=== PATIENT | female | born 1930 | race Caucasian/White ===

== ENCOUNTER 2016-11-13 01:04 | Day surgery (SDC) | payer MEDICARE, OTHER ==
[~2016-11-13] VITALS: Ht 142.2 cm; Wt 55.5 kg
[2016-11-13] VITALS (24 sets, daily range): BP systolic 89–121; BP diastolic 43–94; PULSE 60–92; RESP 12–20; O2SAT 93–100
[~2016-11-13 01:04] MED LIST: ASPI-973 PO; CHLS378PW PO; CHOL100045 PO; CHOL400D9 PO; DILT-17 PO; FERROUS SULFATE PO; HYDR-4003 PO; HYDR12.55 PO; LORA0.5T PO; LOSA50TA37 PO; LUTE1CAP4 PO; OMEP20TA86 PO; OXYB10TA PO; [UNRECOGNIZED DRUG - CODE] MC
[2016-11-13] MEDS ORDERED: Propofol 10,000 mCg/mL 20 mL Inj ONE (01:05)
[2016-11-13] MEDS ORDERED: Phenylephrine/NS-PF 100 mCg/mL 5 mL Syringe IVPUSH ONE (01:05)
[2016-11-13] MEDS ORDERED: fentaNYL-PF 50 mCg/mL 2 mL Inj ONE (01:05)
[2016-11-13] MEDS ORDERED: Rocuronium 10 mg/mL 5 mL Inj ONE (01:05)
[2016-11-13] MEDS ORDERED: Glycopyrrolate 0.2 MG/ML 1mL Inj ONE (01:05)
[2016-11-13] MEDS ORDERED: Ondansetron 2 mg/mL 2 mL Inj ONE (01:05)
[2016-11-13] MEDS ORDERED: Neostigmine 1 mg/mL 10 mL Inj ONE (01:05)
[2016-11-13] MEDS ORDERED: EPHEDrine/NS 5 mg/mL 5 mL Syringe ONE (01:05)
[2016-11-13] MEDS ORDERED: Lactated Ringer's 1,000 ML IV SCH ×2 (05:00→08:17)
[2016-11-13] MEDS ORDERED: Levofloxacin 500 mg/100 mL D5W IV ONE (06:00)
[2016-11-13 07:52] LABS: BASOPHILS % (AUTO) 0.5 % (0-3); EOSINOPHILS % (AUTO) 2.5 % (0-5); MONOCYTES % (AUTO) 10.2 % (4-12); Mean Corpuscular Hemoglobin 29.1 pg (27.0-35.0); Mean Corpuscular Volume 87.9 fL (81-100); NEUTROPHILS % (AUTO) 44.2 % (40-74); Platelet Count 319 bil/L (150-400)
[2016-11-13] MEDS ORDERED: CRAN200C2 PO (07:53)
--- NOTE | 2016-11-13 08:06 | NUR ---
MIKE: Pt arrived to [facility] around 0700 with her , ambulated with steady gate onto unit into room 3. 20 g IV started in L AC, blood drawn and sent to lab per order. No c/o pain, VSS. Consent signed and on chart from day surgery. Pt states understanding to procedure. Addendum: 11/13/16 at 0918 by DAVE PEREZ RN Taken to [facility] for procedure at 0910, aware and has pt belongings with him.
[2016-11-13 08:13] LABS: INR 0.95 ratio
[2016-11-13] MEDS ORDERED: Lactated Ringer's 500 ML IV PRN (08:17)
--- NOTE | 2016-11-13 08:17 | PCM.HPANE ---
Patient Data Date of Service: Nov 13, 2016 Surgeon Admitting Provider: Attending Provider:Quynh Cabrera MD Primary Care Physician:Martin Elizabeth MD Other Provider:Hernandez Aguilar Anesthesia Reason for Visit Large Right Kidney Stone, Urinary Tract Infections Ht/WT & BMI Height (Feet): 4 Height (Inches): 11.00 Weight (Kilograms): 55.450 Body Mass Index 24.64 Allergies Coded Allergies: Barrow And Derivatives (Verified Allergy, Severe, RASH (RECENTLY FROM LEMONADE), 11/08/16) cefixime (Verified Allergy, Severe, RASH, 11/08/16) cimetidine (Verified Allergy, Unknown, UNKNOWN, 11/08/16) zinc (Verified Allergy, Unknown, UNKNOWN, 11/08/16) Uncoded Allergies: EGGSHELL MEMBRANE (Allergy, Unknown, UNKNOWN, 11/08/16) Past Anesthesia History Anesthesia History: Denies:: Anesthesia Reactions, Malignant Hyperthermia Diabetes History Hx Diabetes?: No MRSA MRSA: No Medications Blood Thinner: Aspirin Hypertension Medication: Yes (LOSARTAN,DILTIAZEM) Reported Medications Cranberry Extract (Cranberry)200 Mg Tztcbee519 Mg PO PRN urinary symptoms 11/13/16 Hydrochlorothiazide 12.5 Mg Ssqshf62.5 Mg PO DAILY 30 Days Ref 0 11/08/16 Cholecalciferol (Vitamin D3) (Vitamin D)1,000 Unit Capsule2,000 Unit PO DAILY # 1 BOTTLE Ref 0 11/08/16 Oxybutynin Chloride ER 10 Mg Tab.er.2410 Mg PO DAILY Ref 0 11/08/16 Hydrocodone-Acetaminophen 5-325 mg 1 Each Tablet1 Tablet PO Q6H PRN For Pain Ref 0 11/08/16 Lutein/Zeaxanthin (Lutein-Zeaxanthin 25-5 mg Sfgl)1 Each Capsule1 Each PO DAILY 11/08/16 Losartan Potassium 50 Mg Lxjdtz41 Mg PO DAILY 11/08/16 Lorazepam 0.5 Mg Tablet0.5-1 Mg PO TID PRN For Anxiety Ref 0 11/08/16 Diltiazem ER 120 Mg Cap.er.43e177 Mg PO DAILY Ref 0 11/08/16 Cholestyramine (Questran Powder)378 Gm Powd9 Gm PO DAILY PRN PRN #1 CAN Ref 0 11/08/16 Aspirin 81 Mg Efbywx17 Mg PO DAILY Ref 0 11/08/16 Discontinued Reported Medications [Ferrous Sulfate] No Conflict Check25 Mg PO DAILY PRN PRN 11/08/16 Omeprazole 20 Mg Tablet.dr20 Mg PO DAILY PRN PRN 11/08/16 Peppermint Oil 30 Ml Oil30 Ml [facility] DIRECTED PRN HEALTH 11/08/16 Cholecalciferol (Vitamin D3) (Vitamin D)400 Unit/1 Ml Qapgl428 Unit PO DAILY 11/08/16 History History of ENT Problems?: Yes HEENT History: Positive for:: Cataracts (bilateral, removed) Dysphagia Hearing Problem Sinus Problem (seasonal allergies) Denies:: Glaucoma Denture Type: Partial- Upper Teeth Condition: Within Normal Limits Hx of Heart Problems?: Yes Cardiovascular History: Positive for:: Chest Pain (HX PLEURITIC CHEST PAIN) Edema (mild in lower legs at times) Hypertension Denies:: Cardiac Surgery Congestive Heart Failure Heart Murmur Irregular Heartbeat Peripheral Vascular Other Cardiac History: HX ANEMIA Hx of Respiratory Problem?: Yes Respiratory History: Positive for:: Asthma (HX OF REACTIVE AIRWAY DISEASE) Denies:: Chest Surgery (HX PLEURITIC CHEST PAIN) Dyspnea Pneumonia Tuberculosis Use of C-PAP Machine Hx Neurologic Problems?: Yes Neurological History: Positive for:: Dizziness Headaches Denies:: CVA Dementia Parkinson's Disease Seizures Hx of GI Problems?: Yes Other GI Pertinent History: HX IBS Hx of Problems?: Yes Genitourinary History: Positive for:: Kidney Stones (LT STONE PRESENT LARGE RT KIDNEY STONE=CURRENT PROBLEM) Urinary Tract Infection (RECURRENT) Other Pertinent History: C/OF RLQ PAIN S/P BLADDER SURGERY Female Hx: Denies:: Currently Skin History: Positive for:: History Skin Disorders? (DERMATITIS-RECENT PUBIC RASH FROM DRINKING LEMONADE) Denies:: Pressure Ulcers Hx Musculoskeletal Problems?: Yes Musculoskeletal History: Positive for:: Back Injury (post fall ) Degenerative Joint (KNEES) Osteoarthritis (OSTEOPENIA) Denies:: Joint Replacement Hx of Psycho/Social Problems?: Yes Psycho Social History: Positive for:: Anxiety Denies:: Hx Depression Suicide Attempt Hx Surgeries?: Yes (hysterectomy, nasal surgery) Hx Any Other Health Problems?: Yes Other History: Positive for:: Hospitalization (hysterectomy, nasal surgery) Denies:: Cancer Endocrine Disease Thyroid Disease History Blood Transfusions: Positive for:: Accept Blood Products? Denies:: Blood Transfusions Hx Diabetes: No Hx Alcohol Use: NoHx Substance Use: NoHave You Smoked inLast 12 mo: No Stop/Bang S-Snoring: Do You Snore Loudly: No T-Tired: feel tired, fatigued: Yes O-Obsered: Observed not breath: No P-Blood Pressure: treated: Yes B- Body Mass Index > 35 kg/m2: No A- Age over 50: Yes N- Neck Large Circumference: No G- Gender Male: No EMILY Total Score: 3 EMILY Category 2: Yes Risk Assessment Category Category 1A: Patient has history of documented sleep apnea, and HAS NOT received any narcotic, sedative or anesthesia administration during this stay. Category 1B: Patient has history of documented sleep apnea, and HAS received any narcotic , sedative or anesthesia administration during this stay Category 2: Patient has SUSPECTED Obstructive Sleep Apnea, and HAS received any narcotic , sedative or anesthesia administration during this stay. Category 3: Patient has SUSPECTED Obstructive Sleep Apnea and HAS NOT received narcotic, sedative or anesthesia administration during this stay. Category 4: Outpatient in Procedural Areas with known sleep apnea or who screen positive for High Risk via the STOP/BANG questionnaire. Exam Exam Vital Signs Vital Signs Date Time Temp Pulse Resp B/P Pulse Ox O2 Delivery O2 Flow Rate FiO2 11/13/16 07:05 36.5 60 16 108/94 96 Room Air General Appearance: Alert, Oriented X3, Cooperative HEENT/AIRWAY: MP 2, Neck Movement, Mouth Opening (Wide) Lungs: Clear to Auscultation, Normal Air Movement Heart: Regular Rate/Rhythm, Normal S1, Normal S2 Meds/Labs/Diagnostics Admission Meds Current Medications Lactated Ringer's (Lr) 1,000 ml @ 120 mls/hr Q8H20M IV Last administered on t 08:06; Start 11/13/16 at 05:00; Stop 11/13/16 at 13:19 Labs Test 11/13/16 07:15 White Blood Count 7.3th/mm3 (3.8-10.1) Red Blood Count 4.06mil/mm3 (3.90-5.20) Hemoglobin 11.8g/dL (12.0-15.6) Hematocrit 35.7% (35.0-46.0) Mean Corpuscular Volume 87.9fL (81-100) Mean Corpuscular Hemoglobin 29.1pg (27.0-35.0) Mean Corpuscular Hemoglobin Concent 33.1% (32.0-37.0) Red Cell Distribution Width 13.8% (12.3-15.4) Platelet Count 319bil/L (150-400) Neutrophils (%) (Auto) 44.2% (40-74) Lymphocytes (%) (Auto) 42.5% (14-46) Monocytes (%) (Auto) 10.2% (4-12) Eosinophils (%) (Auto) 2.5% (0-5) Basophils (%) (Auto) 0.5% (0-3) Plan Impression Patient chart reviewed, patient interviewed and anesthestic plan with risks, benefits, and alternatives discussed, and informed consent obtained. NPO per Anesth. Guidelines: Yes ASA Physical Status: ASA2 Mod Systemic Disease Anesthetic Plan: GA Bene/Risks/Altern/Consents: Yes HP Complete Prior to Induction: Yes Venkat Costa MD Nov 13, 2016 08:17
[2016-11-13] MEDS ORDERED: Atropine 0.4 mg/mL Inj IVPUSH PRN (08:20)
[2016-11-13] MEDS ORDERED: EPHEDrine Sulfate 50 mg/mL Inj IVPUSH PRN (08:20)
[2016-11-13] MEDS ORDERED: Phenylephrine 10,000 mCg/mL Inj IVPUSH PRN (08:20)
[2016-11-13] MEDS ORDERED: fentaNYL-PF 50 mCg/mL 2 mL Inj IVPUSH PRN (08:20)
[2016-11-13] MEDS ORDERED: Ondansetron 2 mg/mL 2 mL Inj IVPUSH PRN ×2 (08:20→14:30)
[2016-11-13] MEDS ORDERED: hydrALAZINE 20 mg/mL Inj IVPUSH PRN (08:20)
[2016-11-13] MEDS ORDERED: HYDROmorphone 1 mg/mL Inj IVPUSH PRN ×2 (08:20→14:30)
[2016-11-13] MEDS ORDERED: Labetalol 5 mg/mL 4 mL Inj IV PRN (08:20)
[2016-11-13] MEDS ORDERED: Dexamethasone 4 mg/mL Inj IVPUSH PRN (08:20)
[2016-11-13] MEDS ORDERED: Albuterol-Ipratropium 3 mL Inhalation Solution NEB PRN (08:20)
[2016-11-13] MEDS ORDERED: MetoCLOpramide 5 mg/mL 2 mL Inj IVPUSH PRN (08:20)
[2016-11-13] MEDS ORDERED: Heparin 10,000 Unit/1,000 mL NS Premix IV ONE (08:56)
[2016-11-13 09:31] LABS: APPEARANCE,URINE HAZY (CLEAR,HAZY); COLOR,URINE STRAW (YELLOW)
[2016-11-13 09:32] LABS: OCCULT BLOOD,URINE LARGE (NEGATIVE); UROBILINOGEN,URINE NORMAL (NORMAL)
[2016-11-13] MEDS ORDERED: Lactated Ringer's 1,000 ML IV ONE ×5 (10:28→16:30)
--- NOTE | 2016-11-13 13:07 | DRSVH ---
PROCEDURE: NEPHROSTOMY WIRE PLACEMENT (P) 1. 2 left nephrostomy tube placements. 2. Left antegrade pyelogram. 3. Fluoroscopic guidance for renal access. 4. Conscious sedation for 60 minutes. INDICATIONS: KIDNEY STONE TECHNIQUE: The indications, alternatives, benefits, risks, and complications of the procedure were e xplained to the patient and any family members present. Informed written consent was obtained and pl aced in the chart. The patient was brought to the angiography suite. Conscious sedation was adminis tered intravenously by nursing home staff, with continuous cardiorespiratory monitoring. The patient was placed in the oblique position on the angiography table. The back was prepped and dr aped in a sterile fashion, with 1% lidocaine used for local anaesthesia. A left interpolar posterior renal calyx was accessed using fluoroscopic guidance with an Accustick set. A small amount contrast was injected through the Accustick needle for an antegrade pyelogram. An 0.018 Mandrill wire was ad vanced into the renal pelvis and exchanged for an Accustick dilator/sheath. The AccuStick sheath was exchanged for a 6 Upper Sorbian sheath. A 035 Glidewire and Kumpe catheter were advanced into the proximal t o mid ureter. Next, a second AccuStick set was used to access the more superior region of the renal collecting system. An 0.018 Mandrill wire was advanced into the renal pelvis and exchanged for an Acc ustick dilator/sheath. The AccuStick sheath was exchanged for a 6 Upper Sorbian sheath. A 035 Glidewire and Kumpe catheter were advanced into the proximal to mid ureter. 5 Upper Sorbian catheters were danced over the Glidewire, and the glide wires were exchanged for stiff Amplatz wires. A the 6 Upper Sorbian sheath were re moved and the catheters and wires were secured to the skin and the patient was transferred to the ope rating room. The patient was stable during the course of the procedure. FLUOROSCOPY TIME: 10.7 minutes. COMPARISON: None. FINDINGS: Left hydronephrosis is present, severe in degree. A large renal calculus is present within the dilated renal pelvis. At the conclusion of the procedure, 2 nephrostomy catheters extend through the renal collecting system down the ureter into the bladder. IMPRESSION: Successful placement of 2 left nephrostomy catheters without complication. Dictated by: Nicole Shell M.D. on 11/13/2016 at 13:01 Approved by: Nicole Shell M.D. on 11/13/2016 at 13:05
[2016-11-13] MEDS ORDERED: HYDROmorphone 0.5 mg/0.5 mL iSecure Syringe ONE (15:12)
--- NOTE | 2016-11-13 15:19 | OP ---
[address] [address] OPERATIVE REPORT PATIENT: TAE CHRISTINE : 1930 MR#: [id number] ADMIT: 11/13/2016 JOB ID: [id number] DATE OF SURGERY: 11/13/2016 PREOPERATIVE DIAGNOSIS(ES): Right staghorn calculus. POSTOPERATIVE DIAGNOSIS(ES): Right staghorn calculi. PROCEDURE PERFORMED: 1. Right percutaneous nephrolithotomy. 2. Right antegrade nephrostogram. 3. Right ureteroscopy and stone basketing. 4. Right ureteral stent placement. (Modifier-22 is requested) SURGEON: Quynh Cabrera M.D. JAVASCRIPT SOFTWARE ENGINEER: None. FINDINGS: Large right staghorn calculus that was very dense approximately 4 cm x 3 cm. There was also a smaller stone approximately 1.5 cm. There were also innumerable small, round stones as well. Given the density of the stones and the innumerable quantity of smaller stones, this procedure took well over 50% longer than a typical percutaneous nephrolithotomy. Therefore, a modifier 22 is being requested. ANESTHESIA: General. ESTIMATED BLOOD LOSS: Less than 20 mL. DRAINS: 1. A 5-Qatari open-ended Pollack catheter as a new right ureteral stent. 2. A 20-Qatari Councill catheter as a right nephrostomy tube. 3. Jacome catheter to the bladder. SPECIMENS: Right kidney stones. COMPLICATIONS: None. CONDITION: Stable. INDICATION FOR THE PROCEDURE: The patient is an 86-year-old woman with a right staghorn stones. She now presents for right percutaneous nephrolithotomy. DESCRIPTION OF PROCEDURE: After informed consent was obtained, the patient was taken to the operating room. A time-out was performed identifying correct patient, surgical site, and procedure. General anesthesia had been induced in Radiology. A Jacome catheter was placed into the patient's bladder using sterile technique, and set to dependent drainage. The patient had come directly to the operating room from the Interventional Radiology suite where she had two percutaneous nephrostomies placed as access for today's procedure. She had received intravenous Levaquin prior to the nephrostomy tubes being placed. She was placed in the prone position, and all pressure points were identified and carefully padded. Her back and flank were then prepped and draped in the usual sterile fashion. The existing wires emanating from the percutaneous nephrostomy tubes were removed prior to prepping the patient. The superior access, that being at the mid pole, was cannulated with a Sensor tip wire. This wire was navigated to the bladder as seen under fluoroscopy. The nephrostomy tube was then backloaded off of it and removed in its entirety. Next, an 11 blade was used to incise a transverse incision approximately 2 cm wide. Next, the dual-lumen ureteral access sheath was placed over the Sensor tip wire and navigated past the ureteropelvic junction as seen under fluoroscopy. A Super Stiff wire was placed through it and navigated to the bladder as seen under fluoroscopy. The dual-lumen catheter was then removed. The Sensor tip was tagged to the drape. Over the Super Stiff wire, a NephroMax balloon dilator was placed over it and under fluoroscopy navigated toward the renal pelvis. It was insufflated to 14 atmospheres of pressure. This was allowed to sit for a couple minutes. Next, the nephroscope sheath was then loaded over the balloon that was semi deflated and under fluoroscopic guidance was placed in the hydronephrotic renal pelvis. The balloon was then completely deflated and removed. The nephroscope was then placed within the sheath and a 26-Qatari nephroscope was then placed within this access sheath and guided into the renal pelvis. There were seen countless small stones that were smooth and round, though there were two larger stones as aforementioned. The Cyber wand was then used to break the largest stone in a piecemeal fashion. It was quite dense and it took well over an hour and 45 minutes just to break this stone. Attention was then turned to the next larger stone which was also treated with the Cyber wand. The innumerable smaller stones were treated with both the Cyber wand as well as stone basketing. The renal pelvis was quite large. Coming up to the ureteropelvic junction, this appeared narrow. It is unclear if this patient has a ureteropelvic junction or if the stone caused the hydronephrosis leading into the smaller caliber ureteropelvic junction. Small stones were seen down the proximal ureter. Flexible ureteroscopy was utilized down the ureter with a Zero tip basket to basket these stones. This was quite painstaking given the innumerable stones that she had. Flexible cystoscope was also used to navigate the renal pelvis and ensure that all the stones into been removed from every calyx. The ureteroscope had been utilized multiple times and then when there were no further stones seen in the proximal ureter, it was navigated antegrade down to the distal ureter to the ureterovesical junction. Ureterogram was performed and verified location at the ureterovesical junction. There were no further stones. It was slowly retracted proximally and there were no remaining stones down the ureter. The ureteroscope was then removed. The nephroscope was then brought back into the renal pelvis and used to verify that there was excellent stone clearance. There were no further stones or stone fragments or debris at the termination of the procedure. A 20-Qatari Councill tip was loaded over the Super Stiff wire into the renal pelvis through the access sheath. It was guided to the renal pelvis and insufflated with 3 cc of sterile water. Antegrade nephrostogram was performed. This revealed the hydronephrosis, though there was no extravasation of contrast dye whatsoever. The access sheath was then cut away and the Councill tip catheter sutured to the patient's skin with 2-0 nylon. Then over the Sensor Tip wire, a 5-Qatari open-ended Pollack was then navigated to the mid ureter as a ureteral stent. The wire was then removed and the Pollack sutured to the patient's skin with 2-0 nylon as well. The lateral edge of the incision was closed somewhat with subcutaneous interrupted stitch of 3-0 chromic. Kerlix was placed around the tubes and foam tape over the wound. She was then placed in supine position. She appeared to tolerate the procedure without apparent complications. It should be noted the lower pole access nephrostomy tube was removed prior to the termination of the procedure. DELROY
--- NOTE | 2016-11-13 15:30 | PCM.ANEP1 ---
Post Anesthesia PACU Phase 1 Assessment Date of Service: Nov 13, 2016 Vital Signs Vital Signs Date Time Temp Pulse Resp B/P Pulse Ox O2 Delivery O2 Flow Rate FiO2 11/13/16 15:17 36.3 66 17 92/45 96 Nasal Cannula 2 11/13/16 15:10 65 18 96/50 94 Nasal Cannula 2 11/13/16 15:00 68 19 94/48 94 Nasal Cannula 2 11/13/16 14:55 68 20 95/43 94 Room Air 11/13/16 14:50 64 17 98/50 100 Simple Mask 10 11/13/16 14:45 61 16 99/50 100 Simple Mask 10 11/13/16 14:40 60 16 92/49 100 Simple Mask 10 11/13/16 14:35 64 16 92/49 100 Simple Mask 10 11/13/16 14:32 35.8 66 12 109/43 100 Simple Mask 10 Anesthetic Administered: GA Level of Alertness: Sleeping, hard to arouse COKER's with Equal Strength: Yes Pain: No Nausea or Vomiting: No CV Function & Hydration Stable: Yes Airway Device: Lungs: Normal Air Movement Dermatome Level: Full Sensation PACU Phase 2 Assessment Complications: No Follow up Care: N/A Patient Instructions Provided: N/A Venkat Costa MD Nov 13, 2016 15:30
[2016-11-13] MEDS: oxyCODONE-Acetamin 5-325 mg Tablet PO PRN ×3 (16:57→23:31)
[2016-11-13] MEDS: Lactated Ringer's 1,000 ML IV SCH (16:57)
--- NOTE | 2016-11-13 17:03 | DRSVH ---
PROCEDURE: X-RAY NEPHROSTOGRAM INDICATIONS: STONE REMOVAL COMPARISON: Outside Film, CT, CT ABD PELVIS W&WO CON IVP, 10/03/2016, 8:43. FINDINGS: Exam limited to 3 submitted images. Within these limits, percutaneous nephrostomy tube an d left ureteral stent present. A roughly 2.5 cm rounded intraluminal filling defect is seen within p artially opacified left renal pelvis. No extravasation of contrast media. IMPRESSION: Limited exam demonstrating roughly 2.5 cm rounded intraluminal filling defect within the left renal p hetal likely a renal pelvic stone. Correlate with real time examination. Left percutaneous nephrostomy tube and ureteral stents present. Dictated by: Jefe HERNANDEZ Interpreted: Nicole Shell MD on 11/13/2016 at 14:39 Approved by: Nicole Shell M.D. on 11/13/2016 at 17:02
--- NOTE | 2016-11-13 18:10 | NUR ---
Arrival to Floor Patient arrives to floor from PACU alert and oriented. SCDs in place, ordered IV fluids hung. Patient on 2L of O2 via NC, sats mid 90s per FURNACE OPERATOR AND TENDER. Patient states she has some right posterior flank pain, treated with ordered pain medications. Nephrostomy tube and garner catheter draining pink tinged urine, dressing clean, dry and intact. in room. Care is ongoing.
[2016-11-14 00:21] VITALS: BP 123/67; PULSE 82; RESP 18; O2SAT 97
[2016-11-14] MEDS: Lactated Ringer's 1,000 ML IV SCH ×2 (01:48→10:28)
[2016-11-14] MEDS: oxyCODONE-Acetamin 5-325 mg Tablet PO PRN ×2 (03:37→08:25)
--- NOTE | 2016-11-14 05:22 | NUR ---
Nephrostomy Tube/ Jacome Catheter Patient A&OX3 and pleasant this evening. Complains of 6-8/10 right abdominal/ flank pain. 2 tabs of percocet seemed to manage pain better than the 1 tab previously given. Patient also complains of bladder feeling full. Bladder scan preformed and showed 000cc in the bladder. Right flank nephrostomy tube has been draining sanguinous drainage this shift, with no visible clots. Jacome catheter is draining light pink tinged urine to gravity, with no visible clots. Jacome is to be pulled at 0600 this am. Will continue to monitor and continue Q1 hour checks. Addendum: 11/14/16 at 0611 by TRENTON SALGADO RN Naa Cooley'minor at 0605
[2016-11-14 08:36] VITALS: BP 118/63; PULSE 69; RESP 19; O2SAT 97
--- NOTE | 2016-11-14 09:48 | PCM.PNSURG ---
Subjective Date of Service: Nov 14, 2016 Date of Service: Nov 14, 2016 Visit Information: Reason for Visit Large Right Kidney Stone, Urinary Tract Infections Surgery/Surgery Date Post-Op Day # 1 Date of Admission: Hospital Day # 2 Subjective: Ms Zamarripa is doing well this morning; she reports good pain control. She was bothered by the garner catheter, and that was removed this morning, and she states she feels better. No n/v. Postop General: No Complaints Gastrointestinal: Good Appetite Pain Management: PO Objective Vital Sign- Last 8 Hours Date Time Temp Pulse Resp B/P Pulse Ox O2 Delivery O2 Flow Rate FiO2 11/14/16 08:36 36.7 69 19 118/63 97 Nasal Cannula 2.00 11/14/16 08:27 Supplement Oxygen Intake and Output- Last 8 Hour 11/14/16 Cumulative From/Thru 07:00 11/08/16 12:35 - 11/14/16 06:17 Intake Total 1583 ml 4883 ml Output Total 925 ml 1065 ml Balance 658 ml 3818 ml Intake Oral 400 ml 400 ml IV Total 1183 ml 4483 ml Output Urine Total 925 ml 1065 ml General: Alert Abdomen: Benign, Appropriately tender (wound RIGHT back is normal appearing; nephrostomy is eduardo and thinly bloody) Extremities: Warm Neuro: Cranial Nerves 2-12 nl Result Diagram: 11/14/1652111/14/16 05 Assessment & Plan Impression POD#1 RIGHT PCNL and URS Problems: Plan Removed nephrostomy tube and stent Discussed wound care - She understands she may have copious leakage from the wound until it closes - Dressings discussed Reviewed activity and restrictions Reviewed intraop findings She will f/u in 2 wks Quynh Cabrera MD Nov 14, 2016 09:48
--- NOTE | 2016-11-14 09:50 | PCM.DISURG ---
Surgical Discharge Instruction Date of Service Nov 14, 2016 Dates of Hospitalization Date of Hospital Admission Providers Admitting Physician: Primary Care Physician: Martin Elizabeth MD Attending Physician: Quynh Cabrera MD Discharge Diagnosis Discharge Diagnosis RIGHT staghorn calculus Post Operative diagnosis RIGHT staghorn calculus Diet Discharge Diet: No restrictions Activity Discharge Activity-General: Balance rest and activity, No lifting >10 pounds for 4-6 weeks Dressing and Incisional Care Dressing Care: Keep dressing clean, dry & intact (once the wound is closed, you don't have to dress it ) Hygiene: May shower, NO bathtub, hot tub or whirlpool Follow Up Plan Follow Up Plan 2 wks Quynh Cabrera MD Nov 14, 2016 09:50
--- NOTE | 2016-11-14 09:52 | PCM.DC.SUR ---
Discharge Summary Date of Service: Nov 14, 2016 Date of Hospital Admission: 11/13/16 Date of Operation(s): 11/13/16 Date of Discharge: 11/14/16 Diagnosis at Time of Discharge RIGHT staghorn calculi Problems: Operation RIGHT PCNL and URS Brief History and Physical: Ms Zamarripa is an 86 F with RIGHT staghorn stones and recurrent UTI. She presented for PCNL 11/13/16. Consultants: None Hospital Course: She underwent uneventful RIGHT PCNL and URS 11/13/16 and was deemed appropriate for DC home POD#1 Pathology: Pending Disposition: Home Follow-up Plan: 2 wks Aspirin (Aspirin) 81 Mg Tablet 81 MG PO DAILY (Reported) Cholecalciferol (Vitamin D3) (Vitamin D) 1,000 Unit Capsule 2,000 UNIT PO DAILY (Reported) Cholestyramine (Questran Powder) 378 Gm Powd 9 GM PO DAILY PRN PRN PRN (Reported ) Cranberry Extract (Cranberry) 200 Mg Capsule 200 MG PO PRN urinary symptoms ( Reported) Diltiazem ER (Diltiazem ER) 120 Mg Cap.er.24h 120 MG PO DAILY (Reported) Hydrochlorothiazide (Hydrochlorothiazide) 12.5 Mg Tablet 12.5 MG PO DAILY ( Reported) Hydrocodone-Acetaminophen 5-325 mg (Hydrocodone-Acetaminophen 5-325 mg) 1 Each Tablet 1 TABLET PO Q6H PRN PRN For Pain (Reported) Lorazepam (Lorazepam) 0.5 Mg Tablet 0.5-1 MG PO TID PRN PRN For Anxiety ( Reported) Losartan Potassium (Losartan Potassium) 50 Mg Tablet 50 MG PO DAILY (Reported) Lutein/Zeaxanthin (Lutein-Zeaxanthin 25-5 mg Sfgl) 1 Each Capsule 1 EACH PO DAILY (Reported) Oxybutynin Chloride ER (Oxybutynin Chloride ER) 10 Mg Tab.er.24 10 MG PO DAILY ( Reported) Quynh Cabrera MD Nov 14, 2016 09:52
--- NOTE | 2016-11-14 13:31 | NUR ---
Discharge Pt discharged at 1330 in w/c to private vehicle with . Pt had Percocet once and declined to have more. Was having mild nausea and vomited once after breakfast. States this can be normal for her that she has a sensitive stomach and "I think it was the coffee." Pt declines medication for nausea. Dressing to right flank is CDI and did teaching with pt and about how to change. Pt has discharge instructions, care notes and rx's. IV removed intact. Pt has all belongings, including hearing aids, and all questions answered.
[2016-11-25 10:09] LABS: Stone Color Tan (.)
[2016-11-25 16:13] LABS: Stone Color Tan (.)
== END 2016-11-14 13:30 | disposition home or self-care (01) ==
LOC: SAS 01:04 → OSC 16:43 → SAS 11-14 13:30
PROVIDERS: ATTEND Urology
DX: N20.0 Calculus of kidney (principal); N39.0 Urinary tract infection, site not specified; I10 Essential (primary) hypertension; K21.9 Gastro-esophageal reflux disease without esophagitis; J45.909 Unspecified asthma, uncomplicated; M19.90 Unspecified osteoarthritis, unspecified site; F41.9 Anxiety disorder, unspecified; Z87.440 Personal history of urinary (tract) infections; Z79.82 Long term (current) use of aspirin; G89.18 Other acute postprocedural pain
CPT/HCPCS: 36415; 50081; 50395; 50431; 52332; 74485; 76001; 80048; 81000; 82360; 85014; 85018; 85025; 85610; 86922; 87077; 87086; 87088; 87186; 96365; C1769; C1894; J1170; J1644; J2175; J2250; J2370; J2405; J2710; J3010; J7120; Q9967